=== PATIENT | male | born 1985 | race Hispanic/Latino ===

== ENCOUNTER 2023-10-08 11:41 | Emergency (ER) | payer OTHER ==
[~2023-10-08] VITALS: Ht 165.1 cm; Wt 78.5 kg
[2023-10-08 12:12] VITALS: BP 121/74; PULSE 50; RESP 14; O2SAT 99
[2023-10-08] MEDS: KETOROLAC 30MG VIAL (30MG/ML) IM ONE ×2 (14:01→14:03)
== END 2023-10-08 16:49 | disposition left against medical advice (07) ==
LOC: EDH 11:41
DX: I82.402 Acute embolism and thrombosis of unspecified deep veins of left lower extremity (principal)
CPT/HCPCS: 99284; 93971; J1885